=== PATIENT | female | born 1985 | race Caucasian/White ===

== ENCOUNTER 2017-01-20 20:39 | Emergency (ER) | payer MEDICAID ==
[~2017-01-20] VITALS: Ht 149.9 cm; Wt 73.0 kg
[2017-01-20 20:42] VITALS: Ht 149.9 cm; Wt 73.0 kg
--- NOTE | 2017-01-20 21:42 | ERA ---
ER Documentation Chief Complaint Date/Time DATE: 01/20/17 TIME: 21:42 Chief Complaint Pelvic pain, low back pain and 6 wks HPI The patient is a 41-year-old female, presenting to the ER because of pelvic pain intermittently for the last day. Her last sexual activity was 4 days ago. She is 6 weeks , denies any vaginal bleeding, vaginal discharge, dysuria. She denies fever, chills, neck pain, chest pain, abdominal pain, vomiting. She does not smoke nor drink, 3 para 2 Past medical history: None Past surgical history: Cholecystectomy, 2 ROS All systems reviewed and are negative except as per history of present illness. Medications Home Meds Active Scripts Acetaminophen* (Tylenol*) 325 Mg Tablet, 2 TAB PO Q6 Y for PAIN AND OR ELEVATED TEMP, #20 TAB Prov:CHANTELLE GARCIA MD 01/20/17 Reported Medications [None] No Conflict Check 11/07/09 Allergies Allergies: Coded Allergies: No Known Allergies (Verified Allergy, Mild, 12/15/11) No Known Drug Allergy (Verified Allergy, Mild, 03/02/07) PMhx/Soc History of Surgery: Yes (c/s x 2, cholecystectomy 6yrs ago) Hx Neurological Disorder: No Hx Respiratory Disorders: No Hx Cardiac Disorders: No Hx Alcohol Use: No Hx Substance Use: No Hx Tobacco Use: No Physical Exam Vitals Vital Signs Date Time Temp Pulse Resp B/P Pulse Ox O2 Delivery O2 Flow Rate FiO2 01/20/17 23:53 98.6 60 18 112/58 99 Room Air 01/20/17 20:42 98.4 70 20 130/61 98 Physical Exam Const: No acute distress. Head: Atraumatic. Eyes: Normal Conjunctiva. ENT: Normal External Ears, Nose and Mouth. Neck: Full range of motion. No meningismus. Resp: Clear to auscultation bilaterally. Cardio: Regular rate and rhythm, no murmurs. Abd: Soft, gravid, normal bowel sounds, non tender. Skin: No petechiae or rashes. Back: No midline or flank tenderness. Ext: No cyanosis, or edema. Neur: Awake and alert. No focal deficit Psych: Normal Mood and Affect. Result Diagram: 01/20/17 2158 Results 24 hrs Laboratory Tests Test 01/20/17 21:55 01/20/17 22:00 White Blood Count 8.110^3/ul Red Blood Count 4.2810^6/ul Hemoglobin 12.4g/dl Hematocrit 37.2% Mean Corpuscular Volume 86.9fl Mean Corpuscular Hemoglobin 29.0pg Mean Corpuscular Hemoglobin Concent 33.3g/dl Red Cell Distribution Width 13.4% Platelet Count 00987^3/UL Mean Platelet Volume 10.4fl Neutrophils % 41.4% Lymphocytes % 46.4% Monocytes % 5.8% Eosinophils % 5.8% Basophils % 0.4% Nucleated Red Blood Cells % 0.0/100WBC Neutrophils # 3.410^3/ul Lymphocytes # 3.810^3/ul Monocytes # 0.510^3/ul Eosinophils # 0.510^3/ul Basophils # 0.010^3/ul Nucleated Red Blood Cells # 0.010^3/ul Beta HCG, Quantitative 37167.0mIU/ml Urine Color LT. YELLOW Urine Clarity SLIGHTLY CLOUDY Urine pH 7.0 Urine Specific [place] 1.015 Urine Ketones NEGATIVE Urine Nitrite NEGATIVE Urine Bilirubin NEGATIVE Urine Urobilinogen 0.2 E.U./dL Urine Leukocyte Esterase NEGATIVE Urine Hemoglobin NEGATIVE Urine Glucose NEGATIVE% Urine Total Protein NEGATIVE Procedures/[place] [address] Radiology Main Line: [phone] DIAGNOSTIC IMAGING REPORT Patient: CLARIBEL BRITO : 1985 Age: 31 Sex: F MR #: [id number] DOS: 01/20/17 2147 Ordering MD: CHANTELLE GARCIA MD Location: [facility] Room/Bed: PROCEDURE: US OB. CLINICAL INDICATION: Pain, vaginal pain, pelvic pain. TECHNIQUE: Multiple sonographic images of the pelvis were obtained. Transabdominal views of the pelvis are available for review. The images were reviewed on a PACS workstation. COMPARISON: No prior studies are available for comparison. FINDINGS: There is a single intrauterine . The mean gestational sac diameter measures 2.02 cm, corresponding to a 3-noah-0-day . The crown-rump length equals 0.65 cm which corresponds to a 9-bdld-9-day gestational age by ultrasound criteria. cardiac activity measures 147 bpm. No subchorionic hemorrhage is identified. The right ovary measures 3.1 x 2.1 x 2.7 cm. The left ovary measures 2.4 x 1.6 x 1.7 cm. Blood flow is demonstrated to both ovaries. The adnexa are unremarkable. There is no free pelvic fluid. IMPRESSION: 1. Single viable intrauterine gestation of approximately 6 weeks 5 days. 2. The estimated date of delivery is 09/10/2017. RPTAT: HTAR .Santino García MD, MD Date Time Electronically viewed and signed by .Santino García MD, MD on 01/20/2017 23:07 .R/ CC: CHANTELLE GARCIA MD MEDICAL MAKING DECISION: The patient is a 41-year-old female, presenting with acute pelvic pain of unclear etiology. The differential diagnoses considered include but are not limited to threatened/incomplete/inevitable/complete , ectopic , non- related bleeding. Departure Diagnosis: Primary Impression: Pelvic pain Condition: Good Comments She was discharged with Tylenol I discussed the findings with the patient. I advised the patient to follow-up with her visual journalist in about 1-2 days, sooner if needed and return if any concern. The patient's blood pressure was elevated (>120/80) but appears stable without evidence of hypertension emergency or urgency. The patient was counseled about the risks of hypertension and urged to pursue outpatient monitoring and therapy within a week with their primary care physician. CHANTELLE GARCIA MD Jan 20, 2017 21:42
[2017-01-20 22:18] LABS: ADD SCAN DIFF NO
[2017-01-20 22:23] LABS: BASOPHILS % 0.4 % (0.0-2.0); EOSINOPHILS # 0.5 10^3/ul (0.0-0.5); EOSINOPHILS % 5.8 % (0.0-7.0); HEMATOCRIT 37.2 % (37.0-47.0); HEMOGLOBIN 12.4 g/dl (12.0-16.0); LYMPHOCYTES # 3.8 10^3/ul (0.8-2.9); LYMPHOCYTES % 46.4 % (15.0-51.0); MEAN CORPUSCULAR HGB CONC 33.3 g/dl (32.0-37.0); MEAN CORPUSCULAR VOLUME 86.9 fl (82.0-101.0); MEAN PLATELET VOLUME 10.4 fl (7.4-10.4); MONOCYTE # 0.5 10^3/ul (0.3-0.9); MONOCYTES % 5.8 % (0.0-11.0); NEUTROPHIL # 3.4 10^3/ul (1.6-7.5); NEUTROPHILS % 41.4 % (39.0-77.0); PLATELET COUNT 200 10^3/UL (140-415); RED BLOOD COUNT 4.28 10^6/ul (4.20-5.40); RED CELL DISTRIBUTION WIDTH 13.4 % (11.5-14.5); WHITE BLOOD COUNT 8.1 10^3/ul (4.8-10.8)
[2017-01-20 22:29] LABS: ADD UMIC NO; URINE BILIRUBIN (Dip) NEGATIVE (NEGATIVE); URINE BLOOD (Dip) NEGATIVE (NEGATIVE); URINE COLOR LT. YELLOW (YELLOW); URINE GLUCOSE (Dip) NEGATIVE (NEGATIVE); URINE KETONES (Dip) NEGATIVE (NEGATIVE); URINE LEUKOCYTE ESTERASE (Dip) NEGATIVE (NEGATIVE); URINE NITRITE (Dip) NEGATIVE (NEGATIVE); URINE TOTAL PROTEIN (Dip) NEGATIVE (NEGATIVE); URINE UROBILINOGEN (Dip) 0.2 E.U./dL (0.1-1.0)
--- NOTE | 2017-01-20 23:08 | RADRPT ---
PROCEDURE: US OB. CLINICAL INDICATION: Pain, vaginal pain, pelvic pain. TECHNIQUE: Multiple sonographic images of the pelvis were obtained. Transabdominal views of the p lela are available for review. The images were reviewed on a PACS workstation. COMPARISON: No prior studies are available for comparison. FINDINGS: There is a single intrauterine . The mean gestational sac diameter measures 2.02 cm, corres ponding to a 7-xcuw-2-day . The crown-rump length equals 0.65 cm which corresponds to a 6- week-4-day gestational age by ultrasound criteria. cardiac activity measures 147 bpm. No sub chorionic hemorrhage is identified. The right ovary measures 3.1 x 2.1 x 2.7 cm. The left ovary measures 2.4 x 1.6 x 1.7 cm. Blood flow is demonstrated to both ovaries. The adnexa are unremarkable. There is no free pelvic fluid. IMPRESSION: 1. Single viable intrauterine gestation of approximately 6 weeks 5 days. 2. The estimated date of delivery is 09/10/2017. RPTAT: HTAR .Santino García MD, MD Date Time Electronically viewed and signed by .Santino García MD, on 01/20/2017 23:07 .R/
[2017-01-20] MEDS ORDERED: ACET325T33 PO (23:39)
[2017-01-20 23:53] VITALS: BP 112/58; PULSE 60; RESP 18; TEMP 98.6
== END 2017-01-20 23:53 | disposition home or self-care (01) ==
LOC: FTE 20:39
DX: O26.891 Other specified pregnancy related conditions, first trimester (principal); R10.2 Pelvic and perineal pain; Z3A.01 Less than 8 weeks gestation of pregnancy
CPT/HCPCS: 76801; 81003; 84702; 85025; 86900; 86901; Z7502

== ENCOUNTER 2017-02-06 22:04 | Emergency (ER) | payer MEDICAID ==
[~2017-02-06] VITALS: Ht 149.9 cm; Wt 72.0 kg
[~2017-02-06 22:04] MED LIST: ACET325T33 PO
[2017-02-06 22:07] VITALS: Ht 149.9 cm; Wt 72.0 kg
[2017-02-07 00:04] LABS: ADD SCAN DIFF NO
[2017-02-07 00:05] LABS: BASOPHILS % 0.3 % (0.0-2.0); EOSINOPHILS # 0.8 10^3/ul (0.0-0.5); EOSINOPHILS % 9.3 % (0.0-7.0); HEMATOCRIT 36.7 % (37.0-47.0); HEMOGLOBIN 12.5 g/dl (12.0-16.0); LYMPHOCYTES # 3.2 10^3/ul (0.8-2.9); LYMPHOCYTES % 35.6 % (15.0-51.0); MEAN CORPUSCULAR HEMOGLOBIN 29.5 pg (29.0-33.0); MEAN CORPUSCULAR HGB CONC 34.1 g/dl (32.0-37.0); MEAN CORPUSCULAR VOLUME 86.6 fl (82.0-101.0); MEAN PLATELET VOLUME 10.3 fl (7.4-10.4); MONOCYTE # 0.4 10^3/ul (0.3-0.9); MONOCYTES % 4.6 % (0.0-11.0); NEUTROPHIL # 4.5 10^3/ul (1.6-7.5); PLATELET COUNT 208 10^3/UL (140-415); RED BLOOD COUNT 4.24 10^6/ul (4.20-5.40); RED CELL DISTRIBUTION WIDTH 13.2 % (11.5-14.5)
--- NOTE | 2017-02-07 00:13 | RADRPT ---
PROCEDURE: US OB. CLINICAL INDICATION: Vaginal bleeding. . TECHNIQUE: Transabdominal imaging of the gravid uterus is available for review COMPARISON: 01/20/2017 FINDINGS: There is an intrauterine with a gestational sac within the uterus with a mean sac diameter of 3.39 cm, corresponding with a gestational age of 8 weeks 4 days. The crown-rump length measures 2.91 cm, corresponding with a gestational age of 9 weeks 5 days. Embryonic heart rate is normal at 166 beats per minute. A yolk sac is also visualized. No subchorionic hemorrhage is identified. The bilateral ovaries were not well visualized. The bilateral adnexa are unremarkable. There is no significant free fluid within the uterus. RPTAT: ZZ IMPRESSION: Single live intrauterine with an estimated gestational age of 9 weeks 1 day by ultrasound criteria and an estimated date of delivery of 09/10/2017. .Elisa Zeng MD, MD Date Time Electronically viewed and signed by .Elisa Zeng MD, on 02/07/2017 00:12 .T/
[2017-02-07 00:39] LABS: ADD UMIC NO; URINE BILIRUBIN (Dip) NEGATIVE (NEGATIVE); URINE BLOOD (Dip) NEGATIVE (NEGATIVE); URINE COLOR LT. YELLOW (YELLOW); URINE GLUCOSE (Dip) NEGATIVE (NEGATIVE); URINE KETONES (Dip) NEGATIVE (NEGATIVE); URINE LEUKOCYTE ESTERASE (Dip) NEGATIVE (NEGATIVE); URINE NITRITE (Dip) NEGATIVE (NEGATIVE); URINE TOTAL PROTEIN (Dip) NEGATIVE (NEGATIVE); URINE UROBILINOGEN (Dip) 0.2 E.U./dL (0.1-1.0)
--- NOTE | 2017-02-07 01:12 | ERD ---
ER Documentation Chief Complaint Date/Time DATE: 02/07/17 TIME: 01:09 Chief Complaint lower back pain, vag bleed x 1/2 hr, 9 weeks HPI Patient is a 31-year-old female who is approximately 9 weeks complaining of mild vaginal spotting that began about an hour before coming to the emergency room. She also has lower pelvic pain that she rates as an 8 out of 10. Denies any dysuria, hematuria, or increased urinary frequency. Denies fever. Denies any nausea or vomiting or diarrhea. She is taking vitamins. ROS All systems reviewed and are negative except as per history of present illness. Medications Home Meds Active Scripts Acetaminophen* (Tylenol*) 325 Mg Tablet, 2 TAB PO Q6 Y for PAIN AND OR ELEVATED TEMP, #20 TAB Prov:CHANTELLE GARCIA MD 01/20/17 Reported Medications [None] No Conflict Check 11/07/09 Allergies Allergies: Coded Allergies: No Known Allergies (Verified Allergy, Mild, 12/15/11) No Known Drug Allergy (Verified Allergy, Mild, 03/02/07) PMhx/Soc History of Surgery: Yes (c/s x 2, cholecystectomy 6yrs ago) Hx Neurological Disorder: No Hx Respiratory Disorders: No Hx Cardiac Disorders: No Hx Psychiatric Problems: No Hx Miscellaneous Medical Probl: No Hx Alcohol Use: No Hx Substance Use: No Hx Tobacco Use: No Smoking Status: Never smoker FmHx Family History: No diabetes Physical Exam Vitals Vital Signs Date Time Temp Pulse Resp B/P Pulse Ox O2 Delivery O2 Flow Rate FiO2 02/06/17 22:07 98.9 75 17 123/88 97 Physical Exam General: well developed, well nourished, alert, nontoxic, no distress Head: normocephalic, atraumatic Respiratory: Clear to auscaultation bilaterally, speaks in full sentences, no use of accesory muscles or labored breathing, no rales, ronchi, or wheezing Cardiovascular: RRR, No murmurs GI: soft, non tender, non distended, negative murphys sign, negative mcburneys point tenderness, no cva tenderness bilaterally, no rebound or guarding Back: no midline tenderness, no step offs or bony abnormalities, sensation to light touch in tact Result Diagram: 02/06/17 9188 Results 24 hrs Laboratory Tests Test 02/06/17 23:45 02/06/17 23:52 Urine Color LT. YELLOW Urine Clarity CLEAR Urine pH 6.0 Urine Specific [place] 1.025 Urine Ketones NEGATIVE Urine Nitrite NEGATIVE Urine Bilirubin NEGATIVE Urine Urobilinogen 0.2 E.U./dL Urine Leukocyte Esterase NEGATIVE Urine Hemoglobin NEGATIVE Urine Glucose NEGATIVE% Urine Total Protein NEGATIVE White Blood Count 9.010^3/ul Red Blood Count 4.2410^6/ul Hemoglobin 12.5g/dl Hematocrit 36.7% Mean Corpuscular Volume 86.6fl Mean Corpuscular Hemoglobin 29.5pg Mean Corpuscular Hemoglobin Concent 34.1g/dl Red Cell Distribution Width 13.2% Platelet Count 41467^3/UL Mean Platelet Volume 10.3fl Neutrophils % 50.0% Lymphocytes % 35.6% Monocytes % 4.6% Eosinophils % 9.3% Basophils % 0.3% Nucleated Red Blood Cells % 0.0/100WBC Neutrophils # 4.510^3/ul Lymphocytes # 3.210^3/ul Monocytes # 0.410^3/ul Eosinophils # 0.810^3/ul Basophils # 0.010^3/ul Nucleated Red Blood Cells # 0.010^3/ul Beta HCG, Quantitative 46299.0mIU/ml Procedures/MDM Patient presents with vaginal spotting during . Vital signs are normal. Lab workup and ultrasound is unremarkable. No evidence of ectopic . She was given a copy of her labs and ultrasound reports that she can follow up with primary care doctor. Recommended Tylenol at home for pain. Recommended this patient follow up with her primary care doctor within 48 hours or return to the emergency room for any worsening of symptoms. However this time I do believe there is suitable for outpatient management. I answered all their questions and they agreed with the plan and were discharged home. Departure Diagnosis: Primary Impression: Threatened Condition: Stable Patient Instructions: Possible Miscarriage (Threatened ) Additional Instructions: Call your primary care doctor TOMORROW for an appointment during the next 1-2 days.See the doctor sooner or return here if your condition worsens before your appointment time. JORDEN LOTT PA-C Feb 07, 2017 01:12
== END 2017-02-07 01:17 | disposition home or self-care (01) ==
LOC: FTE 22:04
DX: O20.0 Threatened abortion (principal); Z3A.09 9 weeks gestation of pregnancy
CPT/HCPCS: 36415; 76801; 81003; 84702; 85025; 86900; 86901; Z7502

== ENCOUNTER 2017-03-10 12:41 | Emergency (ER) | payer SELFPAY ==
[~2017-03-10] VITALS: Ht 149.9 cm; Wt 74.0 kg
[2017-03-10 12:54] VITALS: Ht 149.9 cm; Wt 74.0 kg
--- NOTE | 2017-03-10 13:43 | RADRPT ---
PROCEDURE: US OB. CLINICAL INDICATION: Positive test. Pelvic pain. TECHNIQUE: Multiple sonographic images of the uterus were obtained. The images were revi ewed on a PACS workstation. COMPARISON: 02/06/2017. FINDINGS: There is a single live intrauterine gestation. heart rate is 161 beats per minute. Measurements were made in order to determine age. The results are as follows: BPD = 2.66 cm. HC = 9.99 cm. AC = 8.22 cm. FL = 1.35 cm. Estimated weight is 95 +/- 14 grams. LMP growth percentile is 37 %. Menstrual age by ultrasound dates is 14 weeks 4 days. The estimated date of delivery is 09/04/2017. Position is variable and placenta is posterior grade 0. There is no evidence for an abruption or mehrdad centa previa. IMPRESSION: 1. Single live intrauterine gestation of 14 weeks 4 days menstrual age by ultrasound dates. 2. The estimated date of delivery is 09/04/2017. RPTAT: QQ .Fermin Eagle MD, Date Time Electronically viewed and signed by .Fermin Eagle MD, on 03/10/2017 13:43 .R/
[2017-03-10 14:56] LABS: URINE BLOOD (Dip) POC Negative (NEGATIVE)
[2017-03-10] MEDS ORDERED: ACET500C5 PO (15:16)
--- NOTE | 2017-03-10 15:19 | ERD ---
ER Documentation Chief Complaint Date/Time DATE: 03/10/17 TIME: 15:17 Chief Complaint 14WEEKS PREG LOWER BACK PAIN AND LOWER ABD CRAMPING X1DAY HPI This 31-year-old female presents with some lower abdominal intermittent cramping and low back pain for the last 1-2 days. She is approximately 14 weeks by dates. She denies any dysuria or vaginal bleeding or fevers or vomiting. She was seen at another ER yesterday but states he only did blood work and did not do an ultrasound. She was referred by her OB for evaluation for ultrasound. She is a G3 para 2. ROS All systems reviewed and are negative except as per history of present illness. Medications Home Meds Active Scripts Acetaminophen* (Tylophen*) 500 Mg Capsule, 1 CAP PO Q6H Y for PAIN AND OR ELEVATED TEMP, #15 CAP Prov:SHOLA PATINO MD 03/10/17 Acetaminophen* (Tylenol*) 325 Mg Tablet, 2 TAB PO Q6 Y for PAIN AND OR ELEVATED TEMP, #20 TAB Prov:CHANTELLE GARCIA MD 01/20/17 Reported Medications [None] No Conflict Check 11/07/09 Allergies Allergies: Coded Allergies: No Known Allergies (Verified Allergy, Mild, 12/15/11) No Known Drug Allergy (Verified Allergy, Mild, 03/02/07) PMhx/Soc History of Surgery: Yes (c/s x 2, cholecystectomy 6yrs ago) Hx Neurological Disorder: No Hx Respiratory Disorders: No Hx Cardiac Disorders: No Hx Psychiatric Problems: No Hx Miscellaneous Medical Probl: No Hx Alcohol Use: No Hx Substance Use: No Hx Tobacco Use: No Physical Exam Vitals Vital Signs Date Time Temp Pulse Resp B/P Pulse Ox O2 Delivery O2 Flow Rate FiO2 03/10/17 12:54 98.7 95 18 123/58 100 Physical Exam Const: [] Alert, [id number] Head: Atraumatic Eyes: Normal Conjunctiva ENT: Normal External Ears, Nose and Mouth. Neck: Full range of motion..~ No meningismus. Resp: Clear to auscultation bilaterally Cardio: Regular rate and rhythm, no murmurs Abd: Soft, minimal generalized tenderness, no tenderness at McBurney's point no rebound. Patient is amatory without pain or discomfort non distended. Normal bowel sounds Skin: No petechiae or rashes Back: No midline or flank tenderness Ext: No cyanosis, or edema Neur: Awake and alert Psych: Normal Mood and Affect Results 24 hrs Laboratory Tests Test 03/10/17 14:58 Bedside Urine pH (LAB) 5.5 Bedside Urine Protein (LAB) Negative Bedside Urine Glucose (UA) Negative Bedside Urine Ketones (LAB) Negative Bedside Urine Blood Negative Bedside Urine Nitrite (LAB) Negative Bedside Urine Leukocyte Esterase (L Negative Procedures/MDM Urine is negative for leukocytes, nitrites, glucose, hemoglobin. Pelvic ultrasound shows normal-appearing 14 week without acute findings. Patient presents with lower abdominal pain which is intermittent crampy of uncertain etiology. There is no signs of ectopic , ovarian torsion, UTI, acute abdomen, appendicitis. She will discharged home with instructions to take Tylenol and further observation at home. The patient was stable with no new complaints during the ER course. Clinically, there is no current evidence to suggest meningitis, sepsis, acute abdomen, pneumonia, acute coronary syndrome, pulmonary embolism, or any other emergent condition appearing to require further evaluation or hospitalization. The patient should certainly return for any new or worsening symptoms per the aftercare instructions. They should otherwise follow-up with her primary care doctor for reevaluation this week. Departure Diagnosis: Primary Impression: Pelvic pain complicating Condition: Stable Patient Instructions: Pelvic Pain In : Unclear (2-3 Trimester) Additional Instructions: Studies normal today. See OB for follow-up. Return for fevers, vomiting bleeding, new worsening symptoms. SHOLA PATINO MD March 10, 2017 15:19
== END 2017-03-10 15:37 | disposition home or self-care (01) ==
LOC: FTE 12:41
DX: O26.892 Other specified pregnancy related conditions, second trimester (principal); R10.2 Pelvic and perineal pain; Z3A.14 14 weeks gestation of pregnancy
CPT/HCPCS: 76805; 81003

== ENCOUNTER 2017-05-07 21:30 | Outpatient (CLI) | payer MEDICAID ==
[~2017-05-07] VITALS: Ht 149.9 cm; Wt 79.9 kg
[~2017-05-07 21:30] MED LIST changes: +ACET500C5 PO
[2017-05-07 21:49] VITALS: BP 113/63; PULSE 76; RESP 18; Ht 149.9 cm; Wt 79.9 kg
[2017-05-07] MEDS ORDERED: PRENAT PO (21:52)
[2017-05-07] MEDS ORDERED: NIFEdipine 10 MG CAP PO STA (22:46)
--- NOTE | 2017-05-08 00:54 | PN ---
Triage Information Date/Time May 08, 2017 Weeks of Gestation 22 weeks : 3 Para: 2 Diabetes: none Hypertention: none Additional information Pt c/o contraction and lower back pain, 7/10 on the pain scale. No recent intercourse. Was inside all day on this hot day but was babysitting an 18 month old. No bleeding or leaking. PMHx: none. PSHx: x 2. Cholecystectomy. NKDA. Objective Vital Signs Date Time Temp Pulse Resp B/P Pulse Ox O2 Delivery O2 Flow Rate FiO2 05/07/17 21:49 98.1 76 18 113/63 98 Room Air Heart Rate: 140's Contractions: None (Initially none seen but after oral hydration and Procardia 20 mg x 1 and the pt was feeling much better would occasioanlly see a contraction.) Assessment/Plan A:False labor. P: Especially on these hot days pt is to maintain extra hydration, rest as needed but especially if she has lower abdominal pain again. MERT MORALES MD May 08, 2017 00:53
== END 2017-05-08 00:58 | disposition home or self-care (01) ==
LOC: OBT 21:30 → L-D 21:32 → OBT 05-08 00:58
PROVIDERS: ATTEND Obstetrics & Gynecology
DX: O62.9 Abnormality of forces of labor, unspecified (principal); O26.892 Other specified pregnancy related conditions, second trimester; M54.5 Low back pain; Z3A.22 22 weeks gestation of pregnancy
CPT/HCPCS: G0463

== ENCOUNTER 2017-06-02 23:09 | Outpatient (CLI) | payer MEDICAID ==
[~2017-06-02] VITALS: Ht 149.9 cm; Wt 83.6 kg
[~2017-06-02 23:09] MED LIST changes: -ACET325T33 PO; -ACET500C5 PO; +PRENAT PO
[2017-06-02 23:41] VITALS: Ht 149.9 cm; Wt 83.6 kg
[2017-06-02] MEDS ORDERED: FER325 PO (23:41)
[2017-06-02 23:42] VITALS: BP 107/56; PULSE 70; RESP 18
[2017-06-03 00:06] LABS: ADD UMIC NO; UR ASCORBIC ACID NEGATIVE (NEGATIVE); UR BILIRUBIN (Dip) NEGATIVE (NEGATIVE); UR BLOOD (Dip) NEGATIVE (NEGATIVE); UR CLARITY CLEAR (CLEAR); UR COLOR YELLOW (YELLOW); UR GLUCOSE (Dip) NEGATIVE (NEGATIVE); UR KETONES (Dip) NEGATIVE (NEGATIVE); UR LEUKOCYTE ESTERASE (Dip) NEGATIVE Leu/ul (NEGATIVE); UR NITRITE (Dip) NEGATIVE (NEGATIVE); UR SPECIFIC GRAVITY (Dip) 1.012 (1.003-1.030); UR TOTAL PROTEIN (Dip) NEGATIVE (NEGATIVE); UR UROBILINOGEN (Dip) NEGATIVE (NEGATIVE)
--- NOTE | 2017-06-03 01:46 | RADRPT ---
PROCEDURE: ULTRASOUND OBSTETRICAL LIMITED CLINICAL INDICATION: 31-year-old female with cramping for cervical length evaluation. TECHNIQUE: Multiple sonographic images of the pelvis were obtained. The images were reviewed on a PACS workstation. COMPARISON: Ultrasound OB March 10, 2017. FINDINGS: The cervix is closed with a length of 4.3 cm. There is a single viable intrauterine gestation. Card iac activity is present with 134 beats per minute. There is a variable presentation. The placenta is posterior. There is no evidence for an abruption or placenta previa. IMPRESSION: 1. Single viable intrauterine gestation with variable presentation. 2. The cervix has a length of 4.3 cm. .Darnell Agarwal MD, Date Time Electronically viewed and signed by .Darnell Agarwal MD, MD on 06/03/2017 01:45 .M/
[2017-06-03] MEDS ORDERED: TERBUTALINE 1 MG/ML INJ SC PRN (02:30)
--- NOTE | 2017-06-03 04:17 | PN ---
Triage Information Date/Time Reason for visit: vaginal itching Weeks of Gestation 25w4d /Para x2 c/s Diabetes: none Additional information lower abdominal cramping pain and vaginal itching pain level 4/10 Objective Vital Signs Date Time Temp Pulse Resp B/P Pulse Ox O2 Delivery O2 Flow Rate FiO2 06/02/17 23:42 98.1 70 18 107/56 Room Air Heart Rate: 140's Contractions: >10 Minutes Apart Exam EFM only showed x3 u.c 10min apart Results/Medications Results 24 hrs Laboratory Tests Test 06/02/17 23:15 Urine Color YELLOW Urine Clarity CLEAR Urine pH 6.0 Urine Specific [place] 1.012 Urine Ketones NEGATIVE Urine Nitrite NEGATIVE Urine Bilirubin NEGATIVE Urine Urobilinogen NEGATIVE Urine Leukocyte Esterase NEGATIVE Urine Hemoglobin NEGATIVE Urine Glucose NEGATIVE Urine Total Protein NEGATIVE Medications Current Medications Terbutaline Sulfate (Brethine) 0.25 mg PRN PRN SC Contractions Last administered on 06/03/17t 02:25; Admin Dose 0.25 MG; Start 06/03/17 at 02:30 Imaging Results CVL 4.3 no FFN sent Disposition: Discharge Assessment/Plan IUP 25w4d r/o PTL not in labor plan discharge home , RTH prn with routine labor instructions JB LAMAR MD Jun 03, 2017 04:17
--- NOTE | 2017-06-03 05:04 | TRIAGE ---
OB Triage Datetime Report Generated by CPN: 06/03/2017 05:04 Datetime: 06/03/2017 03:48 Labor Evaluation Frequency: x1 Monitor Mode: External Duration (sec)2399: 50 Pattern: Normal: <= 5 Contractions in 10 Minutes Resting Tone [place]: Relaxed Heart Rate FHR Baseline Rate: 140 Monitor Mode: External US Variability: Moderate 6-25 bpm Accelerations: 10X10 Decelerations: None Category: Category I Datetime: 06/03/2017 03:30 Pain Assessment Pain Scale: 0 Pain Presence: None/Denies Pain Type: N/A Datetime: 06/03/2017 03:00 Labor Evaluation Frequency: x4 Monitor Mode: External Duration (sec)2399: 50-100 Pattern: Normal: <= 5 Contractions in 10 Minutes Resting Tone [place]: Relaxed Heart Rate FHR Baseline Rate: 135 Monitor Mode: External US Variability: Moderate 6-25 bpm Accelerations: 15X15 Decelerations: None Category: Category I Datetime: 06/03/2017 02:45 Pain Assessment Pain Scale: 0 Pain Presence: None/Denies Pain Type: N/A Datetime: 06/03/2017 02:21 Pain Assessment Pain Scale: 3 Pain Presence: Intermittent Pain Type: Cramping Pain Location: Abdomen Pain Assessment Comments: Pt states she felt a couple contractions. Datetime: 06/03/2017 02:00 Labor Evaluation Frequency: x1 Monitor Mode: External Duration (sec)2399: 60 Pattern: Normal: <= 5 Contractions in 10 Minutes Resting Tone [place]: Relaxed Heart Rate FHR Baseline Rate: 135 Monitor Mode: External US Variability: Moderate 6-25 bpm Accelerations: 15X15 Decelerations: None Category: Category I Datetime: 06/03/2017 01:00 Labor Evaluation Frequency: x2 Monitor Mode: External Duration (sec)2399: 40-50 Pattern: Normal: <= 5 Contractions in 10 Minutes Resting Tone [place]: Relaxed Heart Rate FHR Baseline Rate: 135 Monitor Mode: External US Variability: Moderate 6-25 bpm Accelerations: 15X15 Decelerations: None Category: Category I Datetime: 06/03/2017 00:38 Vaginal Exam Membrane Status: Intact Datetime: 06/03/2017 00:00 Labor Evaluation Frequency: x1 Monitor Mode: External Duration (sec)2399: 60 Pattern: Normal: <= 5 Contractions in 10 Minutes Resting Tone [place]: Relaxed Heart Rate FHR Baseline Rate: 135 Monitor Mode: External US Variability: Moderate 6-25 bpm Accelerations: 15X15 Decelerations: None Category: Category I Datetime: 06/02/2017 23:31 Stage of : OB Triage Assessment Type: Triage Maternal Assessment Level of Consciousness: Fully Conscious DTR's/Clonus: DTRs 2+; No Clonus Headache: Denies Blurred Vision: No Respiratory Effort: Unlabored; Regular Rhythm; Equal Expansion Breath Sounds, Left: Clear and Equal Breath Sounds, Right: Clear and Equal Nausea/Vomiting: Denies RUQ Epigastric Pain: Denies Lower Extremities Edema: None Degree: None Upper Extremities Edema: None Degree: None Facial Edema: None Temperature Route: Oral Fall Risk Assessment History of Falling: (0) No Secondary Diagnosis: (0) No Ambulatory Aid: (0) Bedrest/Nurse Assist IV Therapy: (0) No Gait: (0) Normal/Bedrest/Immobile Mental Status: (0) Oriented to Own Ability Fall Score: 0 Fall Risk Score Definition: No Risk: No action required Pain Assessment Pain Scale: 4 Pain Presence: Constant Pain Type: Burning; Cramping Pain Location: Abdomen; Other (Annotations: Lower abdomen, vagina) Datetime: 06/02/2017 23:30 Time of Arrival: 06/02/2017 23:03 EGA: 25.4 Arrived By: Ambulatory Arrived From: Home Chief Complaint: Cramping Movement: Present Contractions: Denies/Absent Rupture of Membranes: Denies Vaginal Bleeding: None Vaginal Discharge: Denies Recent Sexual Intercouse: Denies Abdominal Trauma: Not Applicable Patient Complaints: Cramping; Other Additional Patient Complaints: Vaginal itching and burining when she pees. Time Provider Notified: 06/02/2017 23:25 Provider Notified: Dr. Jc Initial Plan: CEFM, UA Monitor Mode: Palpation (Annotations: Applied) Resting Tone [place]: Relaxed Monitor Mode: External US (Annotations: Applied) Datetime: 05/08/2017 00:43 Labor Evaluation Frequency: x2 Monitor Mode: External Duration (sec)2399: 40-50 Quality: Mild Resting Tone [place]: Relaxed Datetime: 05/08/2017 00:42 Stage of : OB Triage Datetime: 05/07/2017 23:20 Stage of : OB Triage Datetime: 05/07/2017 23:10 Stage of : OB Triage Labor Evaluation Frequency: x3 Monitor Mode: External Duration (sec)2399: 40 Quality: Mild Resting Tone [place]: Relaxed Datetime: 05/07/2017 22:30 Stage of : OB Triage Labor Evaluation Frequency: x5 Monitor Mode: External Duration (sec)2399: 40-60 Quality: Mild Resting Tone [place]: Relaxed Datetime: 05/07/2017 22:26 Monitor Mode: External Datetime: 05/07/2017 22:21 Stage of : OB Triage Datetime: 05/07/2017 21:47 Assessment Type: Triage Maternal Assessment Level of Consciousness: Fully Conscious DTR's/Clonus: DTRs 2+; No Clonus Headache: Denies Blurred Vision: No Respiratory Effort: Unlabored Breath Sounds, Left: Clear and Equal Breath Sounds, Right: Clear and Equal Nausea/Vomiting: Hx of Nausea/Vomiting (Annotations: Nausea, no vomiting today) RUQ Epigastric Pain: Denies Lower Extremities Edema: None Degree: None Upper Extremities Edema: None Degree: None Facial Edema: None Fall Risk Assessment History of Falling: (0) No Secondary Diagnosis: (0) No Ambulatory Aid: (0) Bedrest/Nurse Assist IV Therapy: (0) No Gait: (0) Normal/Bedrest/Immobile Mental Status: (0) Oriented to Own Ability Fall Score: 0 Fall Risk Score Definition: No Risk: No action required Datetime: 05/07/2017 21:43 Heart Rate FHR Baseline Rate: 140 Monitor Mode: External US Comments: U/S held for hts. removed at this time rt ga of 21 wks. Datetime: 05/07/2017 21:42 Time of Arrival: 05/07/2017 21:20 EGA: 21.6 Arrived By: Wheelchair Arrived From: Home Chief Complaint: CRTAMPING SINCE 1800 Contractions: Irregular Time Contractions Began: 05/07/2017 18:00 Contractions: Q10MIN Rupture of Membranes: Denies Vaginal Bleeding: None Vaginal Discharge: Denies Recent Sexual Intercouse: Denies Abdominal Trauma: Not Applicable Patient Complaints: Cramping; Back Pain Initial Plan: VS, TOCO, HEART TONES
== END 2017-06-03 04:04 | disposition home or self-care (01) ==
LOC: OBT 23:09 → L-D 23:09 → OBT 06-03 04:04
PROVIDERS: ATTEND Obstetrics & Gynecology
DX: O26.892 Other specified pregnancy related conditions, second trimester (principal); Z3A.25 25 weeks gestation of pregnancy; R10.9 Unspecified abdominal pain
CPT/HCPCS: 76817; 81003; 96372; J3105; Z7500; G0463